=== PATIENT | female | born 1985 | race Caucasian/White ===

== ENCOUNTER 2017-01-27 11:18 | Emergency (ER) | payer OTHER ==
[2017-01-27 11:30] VITALS: RESP 18
[2017-01-27] MEDS ORDERED: Sodium Chloride 0.9% 1,000 ML IV ONE (11:49)
[2017-01-27 12:03] LABS: RBC URINE 19 /hpf (0-3); URINE BILIRUBIN NEGATIVE (NEGATIVE); URINE BLOOD 1+ (NEGATIVE); URINE COLOR Yellow (YELLOW); URINE GLUCOSE (UA) NORMAL (Normal); URINE KETONE NEGATIVE (NEGATIVE); URINE LEUKOCYTE ESTERASE 1+ Leu/uL (Negative); URINE PROTEIN NEGATIVE (NEGATIVE); WBC URINE 4 /hpf (0-5)
[2017-01-27 12:05] LABS: BASO % 0.3 % (0.0-2.0); EOS # 0.1 K/uL (0.0-0.7); EOS % 0.9 % (0.0-4.0); HEMATOCRIT 38.6 % (34.0-47.0); LYMPH # 2.7 K/uL (1.0-4.3); LYMPH % 18.5 % (20.0-40.0); MEAN CORPUSCULAR HEMOGLOBIN 29.1 pg (27.0-31.0); MEAN CORPUSCULAR HGB CONC 34.3 g/dL (33.0-37.0); MEAN PLATELET VOLUME 7.8 fL (7.2-11.7); MONO # 1.1 K/uL (0.0-0.8); MONO % 7.5 % (0.0-10.0); NRBC % 0.1 % (0.0-2.0); RED CELL DISTRIBUTION WIDTH 12.8 % (11.5-14.5); WHITE BLOOD COUNT 14.6 K/uL (4.8-10.8)
[2017-01-27 12:12] LABS: CHLORIDE 102 mmol/L (98-107)
[2017-01-27 12:13] LABS: POTASSIUM 3.5 mmol/L (3.6-5.2); SODIUM 142 mmol/L (132-148)
[2017-01-27 12:15] LABS: ALB/GLOB RATIO 1.2 (1.0-2.1); AST/SGOT 24 U/L (14-36); BILIRUBIN,TOTAL 0.7 mg/dL (0.2-1.3); BLOOD UREA NITROGEN 11 mg/dL (7-17); CARBON DIOXIDE 27 mmol/L (22-30); GFR AFRICAN-AMERICAN > 60; TOTAL PROTEIN 7.5 g/dL (6.3-8.3)
[2017-01-27 12:16] LABS: ALKALINE PHOSPHATASE 69 U/L (38-126); ALT/SGPT 35 U/L (9-52); CALCIUM 9.1 mg/dl (8.6-10.4); GLUCOSE,RANDOM 100 mg/dL (65-105)
--- NOTE | 2017-01-27 13:20 | CT ---
PROCEDURE: CT Abdomen and Pelvis without Oral or IV contrast. HISTORY: left flank pain/LUQ, r/o kidney stone COMPARISON: None available. TECHNIQUE: Contiguous axial images of the abdomen and pelvis. No oral or IV contrast administered. Coronal and Sagittal reformats generated and reviewed. Radiation dose: Total exam DLP = 422.32 mGy-cm. This CT exam was performed using one or more of the following dose reduction techniques: Automated exposure control, adjustment of the mA and/or kV according to patient size, and/or use of iterative reconstruction technique. FINDINGS: There is limited evaluation of the solid organs without the administration of IV contrast. LOWER THORAX: No visible consolidation, pleural effusion, or pneumothorax. LIVER: Punctate right hepatic lobe calcification, likely granuloma. GALLBLADDER AND BILE DUCTS: Unremarkable unenhanced appearance. PANCREAS: Unremarkable unenhanced appearance. SPLEEN: Unremarkable unenhanced appearance. ADRENALS: Unremarkable unenhanced appearance. KIDNEYS AND URETERS: No hydronephrosis or obstructing renal calculus. BLADDER: The urinary bladder appears unremarkable. REPRODUCTIVE: Uterus is present. APPENDIX: Appendix appears dilated proximally measuring approximately 12 mm in diameter. Minimal adjacent inflammatory stranding. BOWEL: The stomach is nondistended. Lack of oral contrast limits evaluation for bowel pathology. The bowel loops appear within normal limits of caliber without evidence of intestinal obstruction. PERITONEUM: No significant free fluid. No definite free air. LYMPH NODES: No bulky lymphadenopathy identified. VASCULATURE: No aortic aneurysm. BONES: No acute osseous abnormality is detected. OTHER FINDINGS: None. IMPRESSION: Dilated appendix measuring up to 12 mm in diameter. Minimal adjacent inflammatory stranding. Correlate clinically for acute appendicitis. Moderate constipation.
--- NOTE | 2017-01-27 13:25 | C.PDOC ---
History Of Present Illness 31 year old female presents to the ED with complaints of sharp and constant LUQ pain that radiates to the left flank for two days with associated nausea. Patient denies vomiting, diarrhea, dysuria, hematuria, cough, fever, vaginal bleeding/discharge. Time Seen by Provider: 01/27/17 11:32 Chief Complaint (Nursing): Abdominal Pain History Per: Patient History/Exam Limitations: no limitations Onset/Duration Of Symptoms: Days (2 days ) Current Symptoms Are (Timing): Still Present Location Of Pain/Discomfort: LUQ Radiation Of Pain To:: Flank (left flank ) Quality Of Discomfort: Sharp Associated Symptoms: Nausea. denies: Fever, Chills, Vomiting, Diarrhea Abnormal Vaginal Bleeding: No Past Medical History Reviewed: Historical Data, Nursing Documentation, Vital Signs Vital Signs: Last Vital Signs Temp 98 F 01/27/17 14:28 Pulse 65 01/27/17 14:28 Resp 18 01/27/17 14:28 BP 100/68 01/27/17 14:28 Pulse Ox 100 01/27/17 14:54 - Medical History PMH: No Chronic Diseases Family History: States: No Known Family Hx - Social History Hx Alcohol Use: No Hx Substance Use: No - Immunization History Hx Tetanus Toxoid Vaccination: Yes Hx Influenza Vaccination: No Hx Pneumococcal Vaccination: No Review Of Systems Except As Marked, All Systems Reviewed And Found Negative. Constitutional: Negative for: Fever, Chills Cardiovascular: Negative for: Chest Pain, Palpitations Respiratory: Negative for: Cough, Shortness of Breath Gastrointestinal: Positive for: Nausea, Abdominal Pain, Other (Left flank pain ) . Negative for: Vomiting, Diarrhea Genitourinary: Negative for: Dysuria, Hematuria, Vaginal Discharge, Vaginal Bleeding Physical Exam - Physical Exam Appears: Non-toxic, In Acute Distress (mild to moderate pain, patient appears uncomfortable.) Skin: Warm, Dry Head: Atraumatic Eye(s): bilateral: Normal Inspection Oral Mucosa: Moist Neck: Supple Cardiovascular: Rhythm Regular Respiratory: Normal Breath Sounds, No Rales, No Rhonchi, No Wheezing Gastrointestinal/Abdominal: Bowel Sounds, Soft, Tenderness (LUQ and epigastric tenderness to palpation), No Distention, No Guarding, No Rebound Back: CVA Tenderness (left CVA tenderness ) Neurological/Psych: Oriented x3 ED Course And Treatment - Laboratory Results Result Diagrams: 01/27/17 11:58 01/27/17 11:58 O2 Sat by Pulse Oximetry: 100 (room air ) Pulse Ox Interpretation: Normal - CT Scan/US CT Abdomen and Pelvis without Oral or IV contrast. Other Rad Studies (CT/US): Read By Radiologist, Radiology Report Reviewed CT/US Interpretation: FINDINGS: There is limited evaluation of the solid organs without the administration of IV contrast. LOWER THORAX: No visible consolidation, pleural effusion, or pneumothorax. LIVER: Punctate right hepatic lobe calcification, likely granuloma. GALLBLADDER AND BILE DUCTS: Unremarkable unenhanced appearance. PANCREAS: Unremarkable unenhanced appearance. SPLEEN: Unremarkable unenhanced appearance. ADRENALS: Unremarkable unenhanced appearance. KIDNEYS AND URETERS: No hydronephrosis or obstructing renal calculus. BLADDER: The urinary bladder appears unremarkable. REPRODUCTIVE: Uterus is present. APPENDIX: Appendix appears dilated proximally measuring approximately 12 mm in diameter. Minimal adjacent inflammatory stranding. BOWEL: The stomach is nondistended. Lack of oral contrast limits evaluation for bowel pathology. The bowel loops appear within normal limits of caliber without evidence of intestinal obstruction. PERITONEUM : No significant free fluid. No definite free air. LYMPH NODES: No bulky lymphadenopathy identified. VASCULATURE: No aortic aneurysm. BONES: No acute osseous abnormality is detected. OTHER FINDINGS: None. IMPRESSION: Dilated appendix measuring up to 12 mm in diameter. Minimal adjacent inflammatory stranding. Correlate clinically for acute appendicitis. Moderate constipation. Progress Note: Blood work, CT, UA, and Upreg ordered and reviewed. Patient given IV Toradol and IV NS bolus. Reevaluation Time: 14:15 Reassessment Condition: Improved (On reassessment, patient is resting comfortably, and states she is feeling better. On exam, patient has mild LUQ TTP and left rib/back mild TTP. Patient has absolutely no RLQ/RUQ/R periumbilical TTP, (-) McBurney's, (-) Rovsig's. Explained to patient that her CT scan shows enlarged appendix, however I am not suspicious for acute appendicitis due to her clinical presentation and physical exam. She understands that if she begins to develop pain on the right side she should return to ED immediately. She is comfortable with plan and prefers to be discharged than to be admitted for observation. Rx for naprosyn given.) Disposition Counseled Patient/Family Regarding: Studies Performed, Diagnosis, Need For Followup, Rx Given - Disposition Referrals: [facility] [Outside] Disposition: HOME/ ROUTINE Disposition Time: 14:15 Condition: STABLE Additional Instructions: SEGUIMIENTO CON GARCIA DOCTOR / CLNICA EN 1-2 MORTENSEN USE MEDICAMENTOS PARA EL DOLOR GENNY SEA NECESARIO SI GARCIA ENFERMO DOLOR, O SI DESARROLLA DOLOR EN EL LADO DERECHO DEVUELVA A LA ALISSON DE EMERGENCIA INMEDIATAMENTE FOLLOW UP WITH YOUR DOCTOR/CLINIC IN 1-2 DAYS USE MEDICATION FOR PAIN NEEDED IF YOUR PAIN WORSENS, OR IF YOU DEVELOP PAIN ON THE RIGHT SIDE RETURN TO EMERGENCY ROOM IMMEDIATELY Prescriptions: Naproxen [Naprosyn Tab] 375 mg PO BID PRN #15 tab PRN Reason: pain Instructions: Abdominal Pain (ED) Forms: [employer] (Djiboutian), Work Excuse Print Language: MALAWIAN - POA Present On Arrival: None - Clinical Impression Clinical Impression: LUQ abdominal pain, Rib pain on left side - Scribe Statement The provider has reviewed the documentation as recorded by the Scribe Zaira Conner All medical record entries made by the Scribe were at my direction and personally dictated by me. I have reviewed the chart and agree that the record accurately reflects my personal performance of the history, physical exam, medical decision making, and the department course for this patient. I have also personally directed, reviewed, and agree with the discharge instructions and disposition.
[2017-01-27 14:29] VITALS: BP 100/68; PULSE 65; TEMP 98
[2017-01-27 14:46] VITALS: O2SAT 100
== END 2017-01-27 14:29 | disposition home or self-care (01) ==
LOC: C.ER 11:18
DX: R10.12 Left upper quadrant pain (principal); R07.89 Other chest pain
CPT/HCPCS: 74176; 80053; 81001; 83690; 84703; 85025; 96361; 96374; 99284; J1885; J7040

== ENCOUNTER 2017-05-11 11:22 | Emergency (ER) | payer OTHER ==
[2017-05-11 11:29] VITALS: RESP 18; TEMP 99
[2017-05-11 12:02] LABS: RBC URINE 2 /hpf (0-3); URINE BACTERIA RARE (<OCC); URINE BILIRUBIN NEGATIVE (NEGATIVE); URINE BLOOD NEGATIVE (NEGATIVE); URINE COLOR Yellow (YELLOW); URINE GLUCOSE (UA) NORMAL (Normal); URINE KETONE NEGATIVE (NEGATIVE); URINE LEUKOCYTE ESTERASE 2+ Leu/uL (Negative); URINE PROTEIN 1+ mg/dL (NEGATIVE); WBC URINE 14 /hpf (0-5)
[2017-05-11] MEDS ORDERED: Sodium Chloride 0.9% 1,000 ML IV ONE (12:11)
[2017-05-11 12:22] LABS: BASO # 0.1 K/uL (0.0-0.2); BASO % 0.4 % (0.0-2.0); EOS % 0.1 % (0.0-4.0); LYMPH # 2.2 K/uL (1.0-4.3); LYMPH % 15.4 % (20.0-40.0); MEAN CELL VOLUME 86.3 fL (81.0-99.0); MEAN CORPUSCULAR HEMOGLOBIN 29.7 pg (27.0-31.0); MEAN CORPUSCULAR HGB CONC 34.4 g/dL (33.0-37.0); MEAN PLATELET VOLUME 8.3 fL (7.2-11.7); MONO # 0.6 K/uL (0.0-0.8); MONO % 4.3 % (0.0-10.0); RED CELL DISTRIBUTION WIDTH 12.6 % (11.5-14.5); WHITE BLOOD COUNT 14.3 K/uL (4.8-10.8)
[2017-05-11 12:35] LABS: ALKALINE PHOSPHATASE 52 U/L (38-126); ALT/SGPT 45 U/L (9-52); AST/SGOT 29 U/L (14-36); BILIRUBIN,TOTAL 0.6 mg/dL (0.2-1.3); BLOOD UREA NITROGEN 9 mg/dL (7-17); CALCIUM 8.8 mg/dl (8.6-10.4); CARBON DIOXIDE 26 mmol/L (22-30); CHLORIDE 105 mmol/L (98-107); GFR AFRICAN-AMERICAN > 60; GLUCOSE,RANDOM 136 mg/dL (65-105); POTASSIUM 3.4 mmol/L (3.6-5.2); SODIUM 137 mmol/L (132-148); TOTAL PROTEIN 8.8 g/dL (6.3-8.3)
--- NOTE | 2017-05-11 13:02 | C.PDOC ---
History Of Present Illness 31 yr old female presents to the ER for evaluation of epigastric pain, associated with nausea and vomiting for 1 day. Patient also reports of a headache which started today. Otherwise, patient denies fever, cough, chest pain , SOB, dysuria, hematuria, back pain, weakness or numbness. Time Seen by Provider: 05/11/17 11:41 Chief Complaint (Nursing): Dizziness/Lightheaded History Per: Patient History/Exam Limitations: no limitations Onset/Duration Of Symptoms: Days Past Medical History Reviewed: Historical Data, Nursing Documentation, Vital Signs Vital Signs: Last Vital Signs Temp 99.0 F 05/11/17 11:23 Pulse 68 05/11/17 15:11 Resp 18 05/11/17 15:11 BP 113/66 05/11/17 15:11 Pulse Ox 99 05/11/17 15:28 Family History: States: No Known Family Hx - Social History Hx Alcohol Use: No Hx Substance Use: No - Immunization History Hx Tetanus Toxoid Vaccination: Yes Hx Influenza Vaccination: No Hx Pneumococcal Vaccination: No Review Of Systems Except As Marked, All Systems Reviewed And Found Negative. Constitutional: Negative for: Fever Cardiovascular: Negative for: Chest Pain Respiratory: Negative for: Cough, Shortness of Breath Genitourinary: Negative for: Dysuria, Hematuria Musculoskeletal: Negative for: Back Pain Neurological: Negative for: Weakness, Numbness Physical Exam - Physical Exam Appears: Well, Non-toxic, No Acute Distress Skin: Normal Color, Warm, Dry, No Rash Head: Normacephalic Eye(s): bilateral: PERRL Nose: No Flaring, No Discharge Throat: No Drooling Neck: Trachea Midline, Supple Cardiovascular: Rhythm Regular Respiratory: No Decreased Breath Sounds, No Accessory Muscle Use, No Stridor, No Wheezing Gastrointestinal/Abdominal: Soft, Tenderness (mild epigastric) Back: No CVA Tenderness Extremity: Normal ROM, No Deformity, No Swelling Neurological/Psych: Oriented x3, Normal Speech ED Course And Treatment - Laboratory Results Result Diagrams: 05/11/17 12:19 05/11/17 12:19 Urine POC: Negative ECG: Interpreted By Me, Viewed By Me ECG Interpretation: Normal Interpretation Of ECG: SR@60/min, sinus arrhythmia, no acute T wave or ST-T changes. Rate From EC (BPM) O2 Sat by Pulse Oximetry: 99 (RA) Pulse Ox Interpretation: Normal Progress Note: On re-eval, pt is afebrile, hemodynamicaly stable. NOn-toxic. TOlerate PO well in ED. PulsEOx 99% RA. Neck: SUpple, (-) JVD. Lungs: CTA B/L , BS equal B/L. CVS: (+)S1S2, reg. Abd: Benign, (-) guarding, (-) rebound. Back: (-) CVA tenderness. Blood work review, mild leukocytosis noted. UA results review and c/w UTI. Pt advised. ref. to F/u with PMD in 2-3 days for re-eavl. return to ED if any worsening ro new changes. Medical Decision Making Medical Decision Making: PLAN: * EKG * CBC * CMP * Urinalysis * Pepcid IVP * Zofran IVP * Rocephin IVPB * Sodium Chloride IV Disposition Counseled Patient/Family Regarding: Diagnosis, Need For Followup - Disposition Referrals: [facility] [Outside] Disposition: HOME/ ROUTINE Disposition Time: 13:02 Condition: STABLE Additional Instructions: ENCOURAGE FLUIDS TAKE MEDICATION PRESCRIBED FOLLOW UP WITH PMD IN 2-3DAYS FOR RE-EVALUATION. RETURN TO ED IF ANY WORSENING OR NEW CHANGES. Prescriptions: Nitrofurantoin Macrocrystals [Macrobid] 1 cap PO BID #14 cap Instructions: Urinary Tract Infection in Women (ED) Forms: [employer] (Czech), Work Excuse Print Language: GREENLANDIC - Clinical Impression Clinical Impression: UTI (urinary tract infection) - PA / MAINTENANCE WELDER / Resident Statement MD/DO has reviewed & agrees with the documentation as recorded. - Scribe Statement The provider has reviewed the documentation as recorded by the Scribe Tran Leo All medical record entries made by the Gabrielaibjaney were at my direction and personally dictated by me. I have reviewed the chart and agree that the record accurately reflects my personal performance of the history, physical exam, medical decision making, and the department course for this patient. I have also personally directed, reviewed, and agree with the discharge instructions and disposition.
[2017-05-11 15:11] VITALS: BP 113/66; PULSE 68
[2017-05-11 15:26] VITALS: O2SAT 99
--- NOTE | 2017-05-11 20:48 | CARD ---
APPROVED REPORT EKG Measurement Heart [id number] <Conclusion> Normal sinus rhythm with sinus arrhythmia Normal ECG
== END 2017-05-11 15:12 | disposition home or self-care (01) ==
LOC: C.ER 11:22
DX: R10.13 Epigastric pain (principal); N39.0 Urinary tract infection, site not specified
CPT/HCPCS: 80053; 81001; 83690; 85025; 93005; 96361; 96365; 96375; 99285; C9113; J0696; J2405; J7040